=== PATIENT | male | born 1965 | race Two or more races ===

== ENCOUNTER 2020-09-21 09:50 | Emergency (ER) | payer OTHER ==
[~2020-09-21] VITALS: Ht 180.3 cm; Wt 103.6 kg
[2020-09-21] MEDS ORDERED: ONDANSETRON ODT 8 MG PO ONE (11:00)
[2020-09-21] MEDS ORDERED: HYDROcodone/APAP 5/325 TABLET PO ONE (11:00)
[2020-09-21] MEDS ORDERED: KETOROLAC 30 MG/1 ML IM ONE (11:00)
[2020-09-21] MEDS ORDERED: CYCLOBENZAPRINE 10 MG TABLET PO ONE (11:00)
[2020-09-21] MEDS ORDERED: ONDANSETRON ODT 8 MG ONE (11:06)
[2020-09-21] MEDS ORDERED: CYCLOBENZAPRINE 10 MG TABLET ONE (11:07)
[2020-09-21] MEDS ORDERED: KETOROLAC 30 MG/1 ML ONE (11:07)
[2020-09-21] MEDS ORDERED: HYDROcodone/APAP 5/325 TABLET ONE (11:08)
[2020-09-21 11:51] VITALS: BP 136/85
== END 2020-09-21 12:00 | disposition home or self-care (01) ==
LOC: ED 11:53
DX: S39.012A Strain of muscle, fascia and tendon of lower back, initial encounter (principal); M54.41 Lumbago with sciatica, right side; E11.9 Type 2 diabetes mellitus without complications; X58.XXXA Exposure to other specified factors, initial encounter; Y93.89 Activity, other specified; Y92.89 Other specified places as the place of occurrence of the external cause; Y99.8 Other external cause status
CPT/HCPCS: 72110; 96372; 99284; J1885; Q0162